=== PATIENT | male | born 1990 | race African-American/Black ===

== ENCOUNTER 2017-01-16 04:10 | Inpatient (IN) ==
[2017-01-16] MEDS ORDERED: SODIUM CHLORIDE 0.9% 2,000 ML IV STA (04:33)
[2017-01-16] MEDS ORDERED: HYDROmorphone 2 MG/1 ML VIAL IV STA ×2 (04:35→05:14)
[2017-01-16] MEDS ORDERED: ONDANSETRON 4 MG/2 ML VIAL IV STA (04:35)
[2017-01-16 05:01] LABS: Basophils % 0.3 % (0.0-0.8); Eosinophils # 0.1 10*3/uL (0.0-0.87); Eosinophils % 1.1 % (0.00-10.9); Hematocrit 25.9 VOL% (42.0-52.0); Hemoglobin 9.1 GM/DL (14.0-18.0); Immature Granulocytes % 2.4 %; Immature Granulocytes Absolute 0.25 #; Lymphocytes # 1.7 10*3/uL (1.4-4.0); Mean Corpuscular HGB Conc 35.1 GM/DL (32-36); Mean Corpuscular Hemoglobin 27 PG (27-34); Mean Corpuscular Volume 75.5 FL (87-102); Monocytes % 9.2 % (1.7-12.7); NRBC # 3.18 10*3/uL; Neutrophils # 7.5 10*3/uL (1.4-7.4); Platelet Count 55 T/CUMM (130-400); Red Blood Count 3.43 MC/CUMM (3.8-5.5); Red Cell Distribution Width 14.9 % (9.3-17.3); White Blood Count 10.5 T/CUMM (4-12)
[2017-01-16] MEDS ORDERED: PROMETHAZINE 25 MG/1 ML VIAL IM STA (05:15)
[2017-01-16] MEDS ORDERED: PROMETHAZINE 25 MG/1 ML VIAL ONE (05:18)
[2017-01-16] MEDS ORDERED: ONDANSETRON 4 MG/2 ML VIAL ONE (05:18)
[2017-01-16] MEDS ORDERED: HYDROmorphone 2 MG/1 ML VIAL ONE (05:19)
[2017-01-16 05:27] LABS: Albumin 3.9 G/DL (3.4-5.0); Bilirubin,Direct 1.9 MG/DL (0.0-0.20); Bilirubin,Total 3.4 MG/DL (0.2-1.0); Calcium 8.7 MG/DL (8.5-10.1); Osmolality,Calculated 276.8 MOS/KG (273-304); Potassium 4.5 MMOL/L (3.5-5.1); Total Protein 7.8 G/DL (6.4-8.3)
[2017-01-16 05:43] LABS: Band Neutrophils 2 % (0-10); Lymphocytes 15 % (20-55); Myelocytes 1 %; Nucleated Red Blood Cells 30 (0-5); Segmented Neutrophils 80 % (50-85); Total Cells Counted 100
[2017-01-16 05:44] LABS: Hypochromasia Slight; Ovalocytes Few; Platelet Estimate Decreased; Polychromasia 1+; Target Cells Few
--- NOTE | 2017-01-16 05:45 | Emergency Department Note ---
Lui Miles Mantricia, am scribing for, and in the presence of, Herbert Tapia MD 04:34. Regina Miles Hans, MD, personally performed the services described in this documentation, ascribed by Gina Poe in my presence, and it is both accurate and complete 544 . Arrival - Arrival Chief Complaint: Abdominal / Flank Pain Stated Complaint: ask pt ED Nursing Triage Note: c/o abd/flank pain more on right side than left. pt also reports having difficulty urinating. reports nausea/vomiting. hx of sickle cell Mode of Arrival: Ambulatory Limitations: No Limitations Source: Patient - History of Present Illness HPI Narrative: Pt is a 26 y/o black male arriving to ED with c/o right sided abdominal pain that onset yesterday. He reports that the left side is tender also, but the right side is worse. He states that he thinks he has a kidney infection. He also reports that his urine has been very dark. Pt has a PMHx of sickle cell. No other complaints were reported to ED. Onset (ago): hour(s) Consistency: constant Severity: mild Allergies/Adverse Reactions: Allergies Allergy/AdvReac Type Severity Reaction Status Date / Time No Known Allergies Allergy Unverified 01/16/17 04:12 Home Medications: Home Medications Medication Instructions Recorded Confirmed Type Hydrocodone/Acetaminophen [[place] 1 each PO Q4H PRN 01/16/17 01/16/17 History 10-325 Tablet] Naproxen [Naprosyn Tab] 500 mg PO Q12H PRN 01/16/17 01/16/17 History tiZANidine [Zanaflex] 4 - 8 mg PO TID PRN 01/16/17 01/16/17 History Review of System - Review of System Constitutional: Absent: chills, diaphoresis, fever Cardiovascular: Absent: chest pain Gastrointestinal: Present: abdominal pain, nausea, vomiting. Absent: diarrhea Musculoskeletal: Absent: arm pain, back pain, leg pain, neck pain Medical,Surgical,& Family Hx - Medical History Hematology: History of: Sickle Cell Disease - Social History Smoking Status: Current every day smoker Frequency of Alcohol Use: None Type of Drug Use: None Exam Vital Signs: Vital Signs Temperature 98.5 F 01/16/17 04:28 Pulse Rate 101 H 01/16/17 04:28 Respiratory Rate 20 01/16/17 04:28 Blood Pressure 156/108 01/16/17 04:28 O2 Sat by Pulse Oximetry 97 01/16/17 04:14 - General General appearance: alert, in no apparent distress - Head Head exam: Present: atraumatic, normocephalic, normal inspection - Eye Eye exam: Present: normal appearance, PERRL, EOMI - ENT ENT exam: Present: normal exam, normal oropharynx, mucous membranes moist, TM's normal bilaterally, normal external ear exam - Neck Neck exam: Present: normal inspection, full ROM, trachea midline. Absent: tenderness - Chest Chest inspection: Present: normal inspection, symmetric chest wall rise. Absent : tenderness - Respiratory Respiratory exam: Present: normal lung sounds bilaterally - Cardiovascular Cardiovascular exam: Present: regular rate, normal rhythm, normal heart sounds - Abdominal Exam Abdominal exam: Present: soft, tenderness (RUQ), normal bowel sounds. Absent: distention, guarding, rebound - Extremities Exam Extremities exam: Present: normal inspection, full ROM, normal capillary refill. Absent: tenderness, pedal edema - Back Exam Back exam: Present: normal inspection, full ROM. Absent: tenderness - Neurological Exam Neurological exam: Present: alert, oriented X3, CN II-XII intact, normal gait, reflexes normal - Psychiatric Psychiatric exam: Present: normal affect, normal mood - Skin Skin exam: Present: warm, dry, intact, normal color Course Course Narrative: This patient was evaluated with lab work as well as CT scan of abdomen and pelvis and chest x-ray. He was treated with IV fluids and pain medicine but was still having nausea and pain after 2mg of Dilaudid and antiemetics. His chest x-ray showed some atelectasis and bilateral infiltrates in the lower lobes and this was confirmed on CT scan of abdomen and pelvis. His bilirubin was elevated. Hemoglobin is 9.1. He has an appropriate reticulocyte count. CT scan showed no biliary ductal dilation or abnormality with the gallbladder. Lipase was normal. I discussed his sickle cell pain crisis with the hospitalist on-call and she agreed to come and see him for admission. Results - Labs CBC & BMP: 01/16/17 04:38 01/16/17 04:38 Disposition Clinical Impression: Sickle cell anemia with crisis Case discussed with: patient Disposition: Still a Patient Condition: Stable Time of Disposition: 05:44
[2017-01-16 05:50] LABS: Apearance,Urine CLEAR (Clear); Bilirubin,Urine Negative (Negative); Blood, Urine Negative (Negative); Glucose,Urine (UA) Negative (Negative); Ketones,Urine Negative (Negative); Mucus,Urine Occasional /LPF (Occasional); Nitrite,Urine Negative (Negative); Protein,Urine Negative; RBC,Urine 1 /HPF (0-4); Squamous Epithelial Cell,Urine Occasional /HPF (0-10); Urine Color Amber (Yellow); Urine Specific Gravity 1.023 (1.001-1.035); WBC,Urine 1 /HPF (0-6)
[2017-01-16] MEDS ORDERED: ZALEPLON 5 MG CAPSULE PO PRN (05:59)
[2017-01-16] MEDS ORDERED: ACETAMINOPHEN 325 MG TABLET PO PRN (05:59)
[2017-01-16] MEDS ORDERED: ONDANSETRON 4 MG/2 ML VIAL IV PRN (05:59)
[2017-01-16] MEDS ORDERED: MORPHINE 2 MG/1 ML SYRINGE IV PRN (06:10)
--- NOTE | 2017-01-16 06:25 | Hospitalist History & Physical ---
Assessment and Plan - Time spent with patient Time spent discussing smoking cessation with patient: 3 to 10 minutes (1) Sickle cell anemia with crisis Status: Acute Assessment and plan: Admit to the MedSurg unit under service of hospitalist. Given patient's labs and physical assessment at time of admit inspect the patient will require 2 midnight inpatient stay. Hydrate with normal saline at 125 mL's an hour. Pain control with morphine 4 mg IV every 4 hours. May need to be adjusted for adequate pain relief. Repeat labs in a.m. Current Visit: Yes (2) Tobacco dependence Status: Acute Assessment and plan: Smoking cessation provided. Patient offered nicotine patch which he refused. Current Visit: Yes (3) Prerenal azotemia Status: Acute Assessment and plan: Likely due to decreased fluid intake over the last few days. Rehydrate with normal saline at 125 mL's hour. Recheck labs in a.m. Current Visit: Yes History of Present Illness Chief complaint: Abdominal pain/flank pain History of present illness: Mr. Burger is a 26 year old -[place] male with past medical history of sickle cell & everyday smoker presents to the ED this morning with chief complaint of generalized abdominal pain and bilateral flank pain. He reports that he helped his sister move on Wednesday in preparation for college and his symptoms began on . He reports Wednesday he had waxing and waning of nausea and a home Wednesday he had one episode of diarrhea and vomiting. He also indicates that his urine has been very dark. He feels that since Wednesday he has not had enough fluid intake due to hurting himself with the move. Initial workup in ED included WBCs of 10.5, hemoglobin 9.1, hematocrit 25.9, MCV 75.5, platelet count 55, nucleated RBCs 30, retic count 3.3, BUN 20, total bilirubin 3.40, AST 151, ALT 74, alkaline phosphate 242, UA essentially benign. CT of the abdomen and pelvis negative for acute process. Patient was typed and screened in the ED and will be admitted to the MedSurg unit for further evaluation and treatment. Home Medications Medication Instructions Recorded Confirmed Type Hydrocodone/Acetaminophen [[place] 1 each PO Q4H PRN 01/16/17 01/16/17 History 10-325 Tablet] Naproxen [Naprosyn Tab] 500 mg PO Q12H PRN 01/16/17 01/16/17 History tiZANidine [Zanaflex] 4 - 8 mg PO TID PRN 01/16/17 01/16/17 History Allergies Allergy/AdvReac Type Severity Reaction Status Date / Time No Known Allergies Allergy Unverified 01/16/17 04:12 Medical,Surgical,& Family Hx - Medical History Hematology: History of: Sickle Cell Disease - Family History Family History: Reports;: Family Diabetes - Social History Smoking Status: Current every day smoker Have you smoked in the last 12 months: Yes Time spent discussing smoking cessation with patient: 3 to 10 minutes Frequency of Alcohol Use: None Type of Drug Use: None Marital Status: Single Functional capacity: independent ambulation - Gastrointestinal Gastrointestinal: Present: abdominal pain, cramping, diarrhea, nausea - Genitourinary Genitourinary: Present: flank pain Exam - Constitutional Vitals: Period Temp Pulse Resp BP Sys/Huff Pulse Ox Last 24 Hr 98.5 F-98.5 F 101-101 20-20 156-156/108-108 97 General appearance: over weight, other (poor hygiene ) - Head Head exam: Present: normal inspection - Eye Pupils: Present: DEACON - ENT ENT exam: Present: normal exam - Neck Neck exam: Present: normal inspection - Respiratory Respiratory exam: Present: clear to auscultation bilaterally - Cardiovascular Cardiovascular exam: Present: regular rate and rhythm - GI/Abdominal GI/Abdominal exam: Present: normal bowel sounds, tenderness (general tenderness , more intense mid epigastric to left upper quadrant). Absent: Parker's sign - Extremities Exam Extremities exam: Present: normal inspection - Back Exam Back exam: Absent: CVA tenderness (L), CVA tenderness (R) - Neurological Exam Neurological exam: Present: alert, oriented X3 - Psychiatric Psychiatric exam: Present: normal affect - Skin Skin exam: Present: normal color Results - Labs CBC & BMP: 01/16/17 04:38 01/16/17 04:38 Lab Results: I have reviewed the past 24 hour labs - Diagnostic Findings Procedure: CT Abdomen and Pelvis: report reviewed by me Quality Measures - VTE Contraindication to Pharmacological VTE Prophylaxis: Thrombocytopenia
[2017-01-16] MEDS ORDERED: NAPROXEN 500 MG TABLET PO PRN ×2 (07:07)
--- NOTE | 2017-01-16 08:33 | XRay Report ---
XR chest 1V portable Indication: Abdominal pain Comparison: None available Findings: The heart and mediastinum are normal in size and configuration. The pulmonary vascularity is normal in caliber. Small amounts of linear density are present in both lung bases. No other lung infiltrates, effusions, pneumothorax or other abnormality is demonstrated. Impression: Linear density both lung bases, could indicate atelectasis. PROCEDURE INTERPRETED AT [facility] DEPARTMENT OF RADIOLOGY Final Report Signed by: Dr. Bon Dudley
--- NOTE | 2017-01-16 08:41 | CT Report ---
CT abdomen pelvis Indication: Abdominal pain Comparison: None available Technique: Axial CT imaging of the abdomen and pelvis is performed with intravenous contrast. Contrast dose is 100 cc of Omnipaque 350. No oral contrast was used. Findings: There is a nodular density in the right lung base measures 1.6 cm in size. A additional areas of increased linear density are present in both lower lobes CT abdomen: Spleen is markedly enlarged up to 19 cm. The liver has collection and multiple calcifications present in the posterior right lobe without other abnormal density within the liver. Pancreas and adrenal glands are normal in size and enhancement. No evidence of focal lesion is demonstrated in these solid organs. Kidneys are normal in size and enhancement. No evidence of hydronephrosis or nephrolithiasis is seen. The bowel caliber is normal and no wall thickening or adjacent inflammatory change is seen. No evidence of free fluid or free air is present. Multiple central endplate depressions are present in the lower thoracic and lumbar vertebra. Bones are faintly sclerotic. Geographic changes are present in the femoral heads. CT pelvis: The pelvic bowel appears within normal limits. Bladder shows no evidence of abnormality. The pelvic organs show no evidence of abnormality Impression: Splenomegaly. Bilateral pulmonary densities could indicate infection. Sclerotic bone density with multiple central endplate depression in the lumbar spine. Geographic changes in the femoral heads suggests osteonecrosis. These collection of findings could represent myelofibrosis, anemias versus hemoglobinopathies. This CT exam was performed using one or more the following dose reduction techniques: Automated exposure control, adjustment of the MA and/or KV according to patient size, or use of iterative reconstruction technique. PROCEDURE INTERPRETED AT [facility] DEPARTMENT OF RADIOLOGY Final Report Signed by: Dr. Bon Dudley
[2017-01-16] MEDS: SODIUM CHLORIDE 0.9% 1,000 ML IV SCH ×2 (08:45→15:47)
[2017-01-16] MEDS: HYDROmorphone 2 MG/1 ML VIAL IV PRN ×4 (12:16→22:51)
[2017-01-16] MEDS: LEVOFLOXACIN 500 MG TABLET PO SCH ×2 (15:47→16:50)
[2017-01-16] MEDS: tiZANidine 4 MG TABLET PO PRN (16:50)
[2017-01-16 17:35] LABS: Barbiturates Screen,Urine Negative (Negative); Benzodiazepines Screen,Urine Negative (Negative); Cannabinoid Screen,Urine Positive (Negative); Opiate Screen,Urine Positive (Negative); Phencyclidine Screen,Urine Negative (Negative)
[2017-01-16] MEDS: ZALEPLON 5 MG CAPSULE PO PRN (22:51)
[2017-01-17] MEDS: HYDROmorphone 2 MG/1 ML VIAL IV PRN ×2 (01:30→03:47)
[2017-01-17] MEDS: SODIUM CHLORIDE 0.9% 1,000 ML IV SCH ×5 (02:52→23:16)
[2017-01-17 07:19] LABS: Basophils % 0.3 % (0.0-0.8); Eosinophils # 0.2 10*3/uL (0.0-0.87); Eosinophils % 1.1 % (0.00-10.9); Hematocrit 21.3 VOL% (42.0-52.0); Hemoglobin 7.5 GM/DL (14.0-18.0); Immature Granulocytes % 2.9 %; Immature Granulocytes Absolute 0.41 #; Lymphocytes # 1.6 10*3/uL (1.4-4.0); Lymphocytes % 11.1 % (21.2-54.2); Mean Corpuscular HGB Conc 35.2 GM/DL (32-36); Mean Corpuscular Hemoglobin 27 PG (27-34); Mean Corpuscular Volume 75.5 FL (87-102); Monocytes # 1.6 10*3/uL (0.11-0.8); Monocytes % 11.1 % (1.7-12.7); Neutrophils # 10.4 10*3/uL (1.4-7.4); Neutrophils % 73.5 % (38.7-73.9); Platelet Count 62 T/CUMM (130-400); Red Blood Count 2.82 MC/CUMM (3.8-5.5); Red Cell Distribution Width 15.2 % (9.3-17.3); White Blood Count 14.2 T/CUMM (4-12)
[2017-01-17 07:44] LABS: Albumin 3.3 G/DL (3.4-5.0); Bilirubin,Direct 2.3 MG/DL (0.0-0.20); Bilirubin,Indirect 1.4 MG/DL (0.0-1.0); Bilirubin,Total 3.7 MG/DL (0.2-1.0); Calcium 8.2 MG/DL (8.5-10.1); Magnesium 2.5 MG/DL (1.8-2.4); Osmolality,Calculated 268.1 MOS/KG (273-304); Potassium 4.4 MMOL/L (3.5-5.1); Total Protein 6.4 G/DL (6.4-8.3)
[2017-01-17] MEDS: tiZANidine 4 MG TABLET PO PRN (07:46)
[2017-01-17 09:12] LABS: Band Neutrophils 6 % (0-10); Lymphocytes 15 % (20-55); Nucleated Red Blood Cells 91 (0-5); Segmented Neutrophils 77 % (50-85); Total Cells Counted 100
[2017-01-17 09:13] LABS: Hypochromasia 2+; Microcytosis 1+; Platelet Estimate Decreased; Polychromasia 1+; Target Cells Slight
[2017-01-17] MEDS ORDERED: SODIUM CHLORIDE 0.9% 250 ML IV PRN ×2 (09:48→12:37)
--- NOTE | 2017-01-17 10:31 | CT Report ---
CT brain Indication: Headache, vertigo Comparison: None available Technique: Axial CT imaging of the brain is performed without contrast with 3 mm increments. Findings: No evidence of hemorrhage, mass mass effect midline shift or acute infarct seen. The brain parenchyma attenuation and differentiation appears within normal limits. The ventricles and cisterns are normal in caliber. No cranial or skull base abnormality is identified. Impression: No evidence of abnormality demonstrated. This CT exam was performed using one or more the following dose reduction techniques: Automated exposure control, adjustment of the MA and/or KV according to patient size, or use of iterative reconstruction technique. PROCEDURE INTERPRETED AT [facility] DEPARTMENT OF RADIOLOGY Final Report Signed by: Dr. Bon Dudley
--- NOTE | 2017-01-17 11:54 | Hospitalist Progress Note ---
Assessment and Plan (1) Sickle cell anemia with crisis Status: Acute Assessment and plan: Headache with dilaudid, will switch to morphine Add ketorolac IV fluids, supplemental oxygen Headache with dizziness, CT head without acute process Will recheck CBC, will transfuse if needed Current Visit: Yes (2) Tobacco dependence Status: Acute Current Visit: Yes Hospitalist: Subjective Interval history: No acute events overnight. Noted to have dizziness and diaphoresis following a shower. He complains of a headache. Exam - Constitutional Vitals: Period Temp Pulse Resp BP Sys/Huff Pulse Ox Last 24 Hr 97.0 F-98.4 F 95-120 18-20 115-138/58-80 93-98 General appearance: over weight - Head Head exam: Present: normocephalic, atraumatic - Eye Eye exam: Present: EOMI Pupils: Present: DEACON - ENT ENT exam: Present: normal exam - Neck Neck exam: Present: normal inspection - Respiratory Respiratory exam: Present: clear to auscultation bilaterally. Absent: rhonchi, wheezes - Cardiovascular Cardiovascular exam: Present: regular rate and rhythm - GI/Abdominal GI/Abdominal exam: Present: normal bowel sounds, soft. Absent: tenderness, rebound - Extremities Exam Extremities exam: Present: normal inspection - Back Exam Back exam: Present: normal inspection - Neurological Exam Neurological exam: Present: alert, oriented X3 - Psychiatric Psychiatric exam: Present: normal affect, normal mood - Skin Skin exam: Present: warm, intact Results - Labs CBC & BMP: 01/17/17 05:07 01/17/17 05:07 Quality Measures - VTE Contraindication to Pharmacological VTE Prophylaxis: Thrombocytopenia
[2017-01-17] MEDS: LEVOFLOXACIN 500 MG TABLET PO SCH ×2 (11:55→16:03)
[2017-01-17] MEDS: MORPHINE 2 MG/1 ML SYRINGE IV PRN ×4 (11:56→23:11)
[2017-01-17 12:25] LABS: Basophils # 0.1 10*3/uL (0.0-0.2); Basophils % 0.4 % (0.0-0.8); Eosinophils % 0.3 % (0.00-10.9); Hematocrit 22.1 VOL% (42.0-52.0); Hemoglobin 7.8 GM/DL (14.0-18.0); Immature Granulocytes % 3.4 %; Immature Granulocytes Absolute 0.54 #; Lymphocytes # 1.8 10*3/uL (1.4-4.0); Lymphocytes % 11.1 % (21.2-54.2); Mean Corpuscular HGB Conc 35.3 GM/DL (32-36); Mean Corpuscular Hemoglobin 26 PG (27-34); Mean Corpuscular Volume 74.7 FL (87-102); Monocytes # 1.3 10*3/uL (0.11-0.8); Monocytes % 8.3 % (1.7-12.7); NRBC # 16.32 10*3/uL; Neutrophils # 12.2 10*3/uL (1.4-7.4); Neutrophils % 76.5 % (38.7-73.9); Platelet Count 70 T/CUMM (130-400); Red Blood Count 2.96 MC/CUMM (3.8-5.5); Red Cell Distribution Width 15.3 % (9.3-17.3); White Blood Count 15.9 T/CUMM (4-12)
[2017-01-17 12:57] LABS: Hypochromasia Slight; Lymphocytes 7 % (20-55); Microcytosis 1+; Nucleated Red Blood Cells 258 (0-5); Platelet Estimate Decreased; Polychromasia Slight; Segmented Neutrophils 80 % (50-85); Target Cells Slight; Total Cells Counted 100
[2017-01-17] MEDS: KETOROLAC 15 MG/1 ML VIAL IV PRN ×2 (14:25→20:47)
[2017-01-17] MEDS: ZALEPLON 5 MG CAPSULE PO PRN (20:47)
[2017-01-18] MEDS: MORPHINE 2 MG/1 ML SYRINGE IV PRN ×3 (02:20→10:20)
[2017-01-18] MEDS: tiZANidine 4 MG TABLET PO PRN (03:28)
[2017-01-18] MEDS: KETOROLAC 15 MG/1 ML VIAL IV PRN ×2 (03:39→23:55)
[2017-01-18] MEDS: SODIUM CHLORIDE 0.9% 1,000 ML IV SCH ×3 (07:06→22:34)
[2017-01-18 07:18] LABS: Basophils # 0.1 10*3/uL (0.0-0.2); Basophils % 0.3 % (0.0-0.8); Eosinophils # 0.1 10*3/uL (0.0-0.87); Eosinophils % 0.6 % (0.00-10.9); Hematocrit 25.4 VOL% (42.0-52.0); Immature Granulocytes % 4.1 %; Immature Granulocytes Absolute 0.62 #; Lymphocytes # 1.7 10*3/uL (1.4-4.0); Lymphocytes % 11.1 % (21.2-54.2); Mean Corpuscular HGB Conc 35.4 GM/DL (32-36); Mean Corpuscular Hemoglobin 27 PG (27-34); Mean Platelet Volume 11.9 FL (9.6-12.0); Monocytes # 1.2 10*3/uL (0.11-0.8); Monocytes % 8.2 % (1.7-12.7); Neutrophils # 11.5 10*3/uL (1.4-7.4); Neutrophils % 75.7 % (38.7-73.9); Platelet Count 77 T/CUMM (130-400); Red Blood Count 3.34 MC/CUMM (3.8-5.5); White Blood Count 15.2 T/CUMM (4-12)
[2017-01-18 07:43] LABS: Band Neutrophils 3 % (0-10); Lymphocytes 9 % (20-55); Nucleated Red Blood Cells 259 (0-5); Segmented Neutrophils 79 % (50-85); Total Cells Counted 100
[2017-01-18 07:44] LABS: Hypochromasia 1+
[2017-01-18 07:45] LABS: Microcytosis 1+; Ovalocytes Slight; Target Cells Few
[2017-01-18 07:46] LABS: Polychromasia Slight; Tear Drop Cells Slight
[2017-01-18 07:47] LABS: Platelet Estimate Decreased
[2017-01-18 07:48] LABS: Bilirubin,Direct 2.7 MG/DL (0.0-0.20); Bilirubin,Indirect 1.5 MG/DL (0.0-1.0); Bilirubin,Total 4.2 MG/DL (0.2-1.0); Calcium 8.1 MG/DL (8.5-10.1); Magnesium 2.9 MG/DL (1.8-2.4); Potassium 5.2 MMOL/L (3.5-5.1); Total Protein 6.1 G/DL (6.4-8.3)
--- NOTE | 2017-01-18 09:27 | Physician Query Form ---
CLICK EDIT DOCUMENT TO SELECT QUERY ANSWER --> OK --> SIGN Valeria Correa RN, CCDS Certified Clinical Painting Worker W) [phone] (f) [phone] [email or web address]: Make your selection(s) from the choices in EACH section by typing an "x" and enter comments in the comment section. Please use your independent medical judgment in providing your response. This request does not imply that any particular answer is desired or expected. CLINICAL INDICATORS: (Providers should not edit this section) "His chest x-ray showed some atelectasis and bilateral infiltrates in the lower lobes and this was confirmed on CT scan of abdomen and pelvis" and the patient is on antibiotics/ WBC of 14.2 - 15.9 Based on the above, could you clarify the appropriate diagnosis, if significant , that supports the above abnormalities and additional evaluation, monitoring, and/or treatment rendered: ( ) Infiltrate is Atelectasis ( ) Infiltrate is Pneumonia ( ) Infiltrate is ( ) Other, please specify: ( x) Clinically unable to determine COMMENTS: PLEASE ALSO DOCUMENT RESPONSE IN PROGRESS NOTES AND/OR DISCHARGE SUMMARY Use of terms such as suspected, likely, or probable (associated with a specific diagnosis that is being evaluated, monitored, or treated as if it exists) are acceptable and can be restated in the discharge summary if not ruled out. MTDD
[2017-01-18] MEDS: LEVOFLOXACIN 500 MG TABLET PO SCH (10:19)
--- NOTE | 2017-01-18 11:52 | Hospitalist Progress Note ---
Assessment and Plan (1) Sickle cell anemia with crisis Status: Acute Assessment and plan: Dilaudid and ketorolac prn IV fluids, supplemental oxygen Initial cxr with possible infiltrate vs atelectasis Repeat CXR Current Visit: Yes (2) Tobacco dependence Status: Acute Current Visit: Yes Hospitalist: Subjective Interval history: No acute events overnight. This morning patient complains of back pain that he felt is related to the bed. Reports that morphine is not helping, he wants to try dilaudid again even though it caused him to have a headache yesterday. Later this morning, patient in bed, crying, stating that he is in pain and wants to go to sleep. He has been very demanding, expecting his nurse to provide for him the second that he wants something. Exam - Constitutional Vitals: Period Temp Pulse Resp BP Sys/Huff Pulse Ox Last 24 Hr 97.1 F-98.6 F 90-107 17-21 112-153/61-90 91-100 General appearance: over weight - Head Head exam: Present: normocephalic, atraumatic - Eye Eye exam: Present: EOMI Pupils: Present: DEACON - ENT ENT exam: Present: normal exam - Neck Neck exam: Present: normal inspection - Respiratory Respiratory exam: Present: clear to auscultation bilaterally. Absent: rhonchi, wheezes - Cardiovascular Cardiovascular exam: Present: regular rate and rhythm - GI/Abdominal GI/Abdominal exam: Present: normal bowel sounds, soft - Extremities Exam Extremities exam: Present: normal inspection - Back Exam Back exam: Present: normal inspection - Neurological Exam Neurological exam: Present: alert, oriented X3 - Psychiatric Psychiatric exam: Present: normal affect, normal mood - Skin Skin exam: Present: warm, intact Results - Labs CBC & BMP: 01/18/17 06:56 01/18/17 06:56 Quality Measures - VTE Contraindication to Pharmacological VTE Prophylaxis: Thrombocytopenia
[2017-01-18] MEDS: POLYETHYLENE GLYCOL POWDER 17 GM PACK PO SCH (12:35)
--- NOTE | 2017-01-18 12:56 | XRay Report ---
XR chest 1V Indication: Pulmonary infiltrates Comparison: 16 January 2017 Findings: The heart and mediastinum are normal in size and configuration. The pulmonary vascularity is normal in caliber. Left lower lung density appears slightly increased when compared to previous. Right lower lung linear density is similar to previous. No other lung infiltrates, effusions, pneumothorax or other abnormality is demonstrated. Impression: Increased left lower lung density, may indicate pneumonia. PROCEDURE INTERPRETED AT [facility] DEPARTMENT OF RADIOLOGY Final Report Signed by: Dr. Bon Dudley
[2017-01-18] MEDS: HYDROmorphone 2 MG/1 ML VIAL IV PRN (22:30)
[2017-01-19] MEDS: HYDROmorphone 2 MG/1 ML VIAL IV PRN (04:40)
[2017-01-19] MEDS: SODIUM CHLORIDE 0.9% 1,000 ML IV SCH ×3 (06:06→22:04)
[2017-01-19 06:09] LABS: Basophils # 0.1 10*3/uL (0.0-0.2); Basophils % 0.5 % (0.0-0.8); Eosinophils # 0.3 10*3/uL (0.0-0.87); Eosinophils % 1.8 % (0.00-10.9); Hematocrit 22.5 VOL% (42.0-52.0); Immature Granulocytes Absolute 1.04 #; Lymphocytes % 13.5 % (21.2-54.2); Mean Corpuscular HGB Conc 35.6 GM/DL (32-36); Mean Corpuscular Hemoglobin 27 PG (27-34); Mean Corpuscular Volume 76.5 FL (87-102); Mean Platelet Volume 11.7 FL (9.6-12.0); Monocytes # 1.2 10*3/uL (0.11-0.8); Monocytes % 8.2 % (1.7-12.7); NRBC # 27.36 10*3/uL; Neutrophils # 10.2 10*3/uL (1.4-7.4); Platelet Count 92 T/CUMM (130-400); Red Blood Count 2.94 MC/CUMM (3.8-5.5); Red Cell Distribution Width 17.7 % (9.3-17.3); White Blood Count 14.8 T/CUMM (4-12)
[2017-01-19 06:36] LABS: Band Neutrophils 1 % (0-10); Eosinophils 3 % (0-10); Hypochromasia 1+; Lymphocytes 14 % (20-55); Macrocytosis 2+; Myelocytes 1 %; Nucleated Red Blood Cells 250 (0-5); Polychromasia 1+; Segmented Neutrophils 74 % (50-85); Target Cells 1+; Total Cells Counted 100
[2017-01-19 06:37] LABS: Platelet Estimate Decreased
[2017-01-19 06:47] LABS: Calcium 8.3 MG/DL (8.5-10.1); Magnesium 2.9 MG/DL (1.8-2.4); Osmolality,Calculated 273.8 MOS/KG (273-304); Potassium 4.4 MMOL/L (3.5-5.1)
[2017-01-19] MEDS: LEVOFLOXACIN 500 MG TABLET PO SCH (10:03)
[2017-01-19] MEDS: POLYETHYLENE GLYCOL POWDER 17 GM PACK PO SCH (10:04)
[2017-01-19] MEDS ORDERED: ALBUTEROL/IPRATROPIUM 3 ML NEB RESP TX PRN (13:27)
[2017-01-19] MEDS ORDERED: LACTULOSE 20 GM/30 ML UDCUP PO PRN (14:25)
--- NOTE | 2017-01-19 15:03 | Hospitalist Progress Note ---
Assessment and Plan (1) Sickle cell anemia with crisis Status: Acute Assessment and plan: Dilaudid and ketorolac prn IV fluids, supplemental oxygen Initial cxr with possible infiltrate vs atelectasis Repeat CXR more consistent with pneumonia Current Visit: Yes (2) Tobacco dependence Status: Acute Current Visit: Yes (3) Pneumonia Status: Acute Assessment and plan: Levaquin Current Visit: Yes Hospitalist: Subjective Interval history: No acute events overnight. Complaining of right flank pain, tender to palpation. He says that all of his other pain is better. Exam - Constitutional Vitals: Period Temp Pulse Resp BP Sys/Huff Pulse Ox Last 24 Hr 97.9 F-99.9 F 90-101 18-20 115-142/48-88 91-99 General appearance: over weight - Head Head exam: Present: normocephalic, atraumatic - Eye Eye exam: Present: EOMI Pupils: Present: DEACON - ENT ENT exam: Present: normal exam - Neck Neck exam: Present: normal inspection - Respiratory Respiratory exam: Present: clear to auscultation bilaterally. Absent: rhonchi, wheezes - Cardiovascular Cardiovascular exam: Present: regular rate and rhythm - GI/Abdominal GI/Abdominal exam: Present: normal bowel sounds, soft. Absent: tenderness, rebound - Extremities Exam Extremities exam: Present: normal inspection - Back Exam Back exam: Present: normal inspection - Neurological Exam Neurological exam: Present: alert, oriented X3 - Psychiatric Psychiatric exam: Present: normal affect, normal mood - Skin Skin exam: Present: warm, intact Results - Labs CBC & BMP: 01/19/17 05:09 01/19/17 05:09 Quality Measures - VTE Contraindication to Pharmacological VTE Prophylaxis: Thrombocytopenia
[2017-01-19] MEDS: KETOROLAC 15 MG/1 ML VIAL IV PRN (15:18)
[2017-01-19] MEDS: DICLOFENAC 1% GEL 100 GM TUBE TOP SCH ×2 (16:22→21:31)
[2017-01-20] MEDS: HYDROmorphone 2 MG/1 ML VIAL IV PRN (01:39)
[2017-01-20] MEDS: SODIUM CHLORIDE 0.9% 1,000 ML IV SCH ×2 (06:06→16:38)
[2017-01-20 07:33] LABS: Basophils # 0.1 10*3/uL (0.0-0.2); Basophils % 0.6 % (0.0-0.8); Eosinophils # 0.3 10*3/uL (0.0-0.87); Eosinophils % 1.6 % (0.00-10.9); Hematocrit 21.6 VOL% (42.0-52.0); Hemoglobin 7.8 GM/DL (14.0-18.0); Immature Granulocytes % 8.6 %; Immature Granulocytes Absolute 1.36 #; Lymphocytes # 2.3 10*3/uL (1.4-4.0); Lymphocytes % 14.5 % (21.2-54.2); Mean Corpuscular HGB Conc 36.1 GM/DL (32-36); Mean Corpuscular Hemoglobin 28 PG (27-34); Mean Corpuscular Volume 77.4 FL (87-102); Mean Platelet Volume 12.1 FL (9.6-12.0); Monocytes # 1.4 10*3/uL (0.11-0.8); NRBC # 34.26 10*3/uL; Neutrophils # 10.4 10*3/uL (1.4-7.4); Neutrophils % 65.7 % (38.7-73.9); Red Blood Count 2.79 MC/CUMM (3.8-5.5); Red Cell Distribution Width 18.9 % (9.3-17.3); White Blood Count 15.8 T/CUMM (4-12)
[2017-01-20 07:53] LABS: Platelet Count 136 T/CUMM (130-400)
[2017-01-20 08:20] LABS: Band Neutrophils 4 % (0-10); Eosinophils 1 % (0-10); Giant Platelets Few; Hypochromasia 1+; Lymphocytes 12 % (20-55); Nucleated Red Blood Cells 223 (0-5); Ovalocytes Slight; Platelet Estimate Normal; Segmented Neutrophils 75 % (50-85); Target Cells Few; Total Cells Counted 100
[2017-01-20 08:21] LABS: Macrocytosis Slight; Polychromasia Slight
[2017-01-20] MEDS: DICLOFENAC 1% GEL 100 GM TUBE TOP SCH ×3 (08:50→20:06)
[2017-01-20] MEDS: POLYETHYLENE GLYCOL POWDER 17 GM PACK PO SCH (08:50)
[2017-01-20] MEDS: LEVOFLOXACIN 500 MG TABLET PO SCH (08:50)
[2017-01-20] MEDS: KETOROLAC 15 MG/1 ML VIAL IV PRN ×2 (10:02→21:13)
[2017-01-20] MEDS ORDERED: HYDROmorphone 2 MG/1 ML VIAL IV PRN (15:43)
[2017-01-20] MEDS ORDERED: SODIUM CHLORIDE 0.9% 250 ML IV PRN (15:44)
--- NOTE | 2017-01-20 15:48 | Hospitalist Progress Note ---
Assessment and Plan (1) Sickle cell anemia with crisis Status: Acute Assessment and plan: Dilaudid and ketorolac prn IV fluids, supplemental oxygen Initial cxr with possible infiltrate vs atelectasis Repeat CXR more consistent with pneumonia Levaquin Drop in H/H today, will transfuse Current Visit: Yes (2) Tobacco dependence Status: Acute Current Visit: Yes (3) Pneumonia Status: Acute Assessment and plan: Levaquin Current Visit: Yes Hospitalist: Subjective Interval history: No acute events overnight. Patient reports that he feels better, pain is better controlled. Exam - Constitutional Vitals: Period Temp Pulse Resp BP Sys/Huff Pulse Ox Last 24 Hr 97.4 F-100.3 F 60-110 17-20 109-152/46-83 90-99 General appearance: over weight - Head Head exam: Present: normocephalic, atraumatic - Eye Eye exam: Present: EOMI Pupils: Present: DEACON - ENT ENT exam: Present: normal exam - Neck Neck exam: Present: normal inspection - Respiratory Respiratory exam: Present: clear to auscultation bilaterally. Absent: wheezes - Cardiovascular Cardiovascular exam: Present: regular rate and rhythm - GI/Abdominal GI/Abdominal exam: Present: normal bowel sounds, soft. Absent: tenderness, rebound - Extremities Exam Extremities exam: Present: normal inspection - Back Exam Back exam: Present: normal inspection - Neurological Exam Neurological exam: Present: alert, oriented X3 - Psychiatric Psychiatric exam: Present: normal affect, normal mood - Skin Skin exam: Present: warm, intact Results - Labs CBC & BMP: 01/20/17 05:30 01/19/17 05:09 Quality Measures - VTE Contraindication to Pharmacological VTE Prophylaxis: Thrombocytopenia
[2017-01-20 20:04] LABS: Apearance,Urine CLEAR (Clear); Bilirubin,Urine Negative (Negative); Blood, Urine Moderate mg/dL (Negative); Glucose,Urine (UA) Negative (Negative); Ketones,Urine Negative (Negative); Nitrite,Urine Negative (Negative); Protein,Urine Negative; RBC,Urine <1 /HPF (0-4); Squamous Epithelial Cell,Urine Occasional /HPF (0-10); Urine Color Amber (Yellow); Urine Specific Gravity 1.009 (1.001-1.035); WBC,Urine 2 /HPF (0-6)
[2017-01-20] MEDS: ZALEPLON 5 MG CAPSULE PO PRN (21:13)
[2017-01-20] MEDS: tiZANidine 4 MG TABLET PO PRN (21:14)
[2017-01-21 03:08] LABS: Basophils # 0.1 10*3/uL (0.0-0.2); Basophils % 0.5 % (0.0-0.8); Eosinophils # 0.2 10*3/uL (0.0-0.87); Eosinophils % 1.6 % (0.00-10.9); Hemoglobin 9.3 GM/DL (14.0-18.0); Immature Granulocytes % 8.7 %; Immature Granulocytes Absolute 1.28 #; Lymphocytes # 2.8 10*3/uL (1.4-4.0); Lymphocytes % 18.8 % (21.2-54.2); Mean Corpuscular HGB Conc 35.8 GM/DL (32-36); Mean Corpuscular Hemoglobin 28 PG (27-34); Mean Corpuscular Volume 78.3 FL (87-102); Mean Platelet Volume 11.7 FL (9.6-12.0); Monocytes # 1.1 10*3/uL (0.11-0.8); Monocytes % 7.4 % (1.7-12.7); NRBC # 33.88 10*3/uL; Neutrophils # 9.3 10*3/uL (1.4-7.4); Platelet Count 190 T/CUMM (130-400); Red Blood Count 3.32 MC/CUMM (3.8-5.5); Red Cell Distribution Width 19.8 % (9.3-17.3); White Blood Count 14.7 T/CUMM (4-12)
[2017-01-21 03:13] LABS: Calcium 8.5 MG/DL (8.5-10.1); Magnesium 2.7 MG/DL (1.8-2.4); Osmolality,Calculated 278.5 MOS/KG (273-304); Potassium 4.5 MMOL/L (3.5-5.1)
[2017-01-21 04:59] LABS: Band Neutrophils 3 % (0-10); Eosinophils 1 % (0-10); Lymphocytes 18 % (20-55); Metamyelocytes 1 %; Myelocytes 5 %; Nucleated Red Blood Cells 290 (0-5); Segmented Neutrophils 70 % (50-85); Total Cells Counted 100
[2017-01-21 05:00] LABS: Anisocytosis 1+; Hypochromasia 1+
[2017-01-21 05:01] LABS: Ovalocytes 1+; Platelet Estimate Normal; Target Cells 1+; Tear Drop Cells Few
[2017-01-21 08:53] LABS: Albumin 2.8 G/DL (3.4-5.0); Bilirubin,Direct 2.5 MG/DL (0.0-0.20); Bilirubin,Indirect 1.5 MG/DL (0.0-1.0); Total Protein 6.1 G/DL (6.4-8.3)
[2017-01-21] MEDS: LEVOFLOXACIN 500 MG TABLET PO SCH (08:56)
[2017-01-21] MEDS: DICLOFENAC 1% GEL 100 GM TUBE TOP SCH (08:56)
[2017-01-21] MEDS: SODIUM CHLORIDE 0.9% 1,000 ML IV SCH (09:00)
[2017-01-21] MEDS: POLYETHYLENE GLYCOL POWDER 17 GM PACK PO SCH (09:01)
--- NOTE | 2017-01-21 10:30 | Discharge Summary ---
<Penny Barfieldda - Last Filed: 01/21/17 10:19> Hospital Course - Hospital Course Hospital Course: This is a 26-year-old male that presented to the ED at [facility] on the morning of January 16, 2017 for evaluation of generalized abdominal pain and bilateral flank pain. The patient has a medical history significant for sickle cell anemia and nicotine abuse. The patient reported the onset of symptoms 4 days prior to presentation. He reported that he states that his sister to move in preparation for college and that he is symptoms appeared on the next day. One day prior to presentation, the patient reported that he had multiple episodes of nausea and one episode of diarrhea and vomiting. In addition, the patient reported a decrease in p.o. intake and dark discoloration of his urine. His symptoms became severe prompting him to present to the ED for further evaluation.The patient was assessed at the time of ED presentation. Labs were obtained which were significant for white blood cell count 18.5, hemoglobin 9.1, hematocrit 25.9, MCV 75.5, platelet count 55, nucleated red blood cells at 30, reticulocyte count at 3.3, BUN 20, total bilirubin 3.40, AST 151, ALT 74, alkaline phosphatase 242. Urinalysis was essentially unremarkable. CT abdomen and pelvis was essentially negative for any acute intra-abdominal processes. Chest x-ray significant for linear density in both lung bases possibly indicating atelectasis. The patient was subsequently admitted to the hospitalist service for continuation of care. The patient was typed and screened prior to transfer to the medical surgical unit. Aggressive fluid rehydration,oxygen supplementation and pain management was initiated. On January 18, 2017, repeat chest x-ray was significant for increased left lower lobe density indicating possible pneumonia. At that time, empiric antibiotic coverage was initiated. The patient was noted to have gradual decline in his hemoglobin and hematocrit. On January 20, 2017; the patient 's hemoglobin and hematocrit was noted at 7.8/21.6. The patient was transfused 2 units of packed red blood cells; the patient's hemoglobin and hematocrit responded appropriately and are noted at 9.3/26.0. The patient's condition is stable. The patient has not experienced any significant overnight events. Today, we feel that he is indeed appropriate for discharge to follow-up with his primary care physician as directed. Discharge Plan - Discharge Data Disposition: Disch To Home/Self Care - Discharge Medications New Levofloxacin Tab [Levaquin Tab] 500 mg PO DAILY #3 tablet Ondansetron Inj [Zofran Inj] 4 mg IV Q4H PRN vial PRN Reason: Nausea Polyethylene Glycol Powder [Miralax] 17 gm PO DAILY Continue Naproxen [Naprosyn Tab] 500 mg PO Q12H PRN PRN Reason: Pain Folic Acid Tab 1 mg PO BID Ergocalciferol (Vitamin D2) [Vitamin D2] 1 tablet PO DAILY Hydrocodone/Acetaminophen [Clarion 10-325 Tablet] 1 each PO Q4H PRN #20 tablet PRN Reason: Pain tiZANidine [Zanaflex] 4 - 8 mg PO TID PRN PRN Reason: Muscle Spasm - Follow Up or Referral - Forms/Instructions Exam - Constitutional Vitals: Period Temp Pulse Resp BP Sys/Huff Pulse Ox Last 24 Hr 97.5 F-99.1 F 88-106 16-22 116-144/63-84 91-99 Discharge Results Procedures and tests throughout hospitalization: Pending Orders 01/17/17 Red Blood Cells Leuko Red Routine Labs on day of discharge: Labs from last 24 hours 01/21/17 01/21/17 01/21/17 02:24 02:24 02:23 WBC 14.7 H RBC 3.32 L Hgb 9.3 L Hct 26.0 L MCV 78.3 L MCH 28 MCHC 35.8 RDW 19.8 H Plt Count 190 D MPV 11.7 Neut % (Auto) 63.0 Lymph % (Auto) 18.8 L [place] % (Auto) 7.4 Eos % (Auto) 1.6 Baso % (Auto) 0.5 Neut # (Auto) 9.3 H Lymph # (Auto) 2.8 [place] # (Auto) 1.1 H Eos # (Auto) 0.2 Baso # (Auto) 0.1 Total Counted 100 Immature Gran % 8.7 Nucleated RBC % 230.2 Immature Gran # 1.28 Segmented Neutrophils 70 Band Neutrophils 3 Lymphocytes 18 L Monocytes 2 Eosinophils 1 Metamyelocytes 1 Myelocytes 5 Nucleated RBCs 290 H Nucleated RBCs # 33.88 Platelet Estimate Normal Hypochromasia 1+ Anisocytosis 1+ Target Cells 1+ Tear Drop Cells Few Ovalocytes 1+ Sodium 139 Potassium 4.5 Chloride 105 Carbon Dioxide 28 Anion Gap 10.5 BUN 15 Creatinine 0.70 GFR Calculation 207 BUN/Creatinine Ratio 21.00 H Glucose 116 H Calculated Osmolality 278.5 Calcium 8.5 Magnesium 2.7 H Total Bilirubin 4.00 H Direct Bilirubin 2.50 H Indirect Bilirubin 1.5 H AST 129 H ALT 84 H Alkaline Phosphatase 262 H Total Protein 6.1 L Albumin 2.8 L Urine Color Urine Appearance Urine pH Ur Specific [place] Urine Protein Urine Glucose (UA) Urine Ketones Urine Blood Urine Nitrate Urine Bilirubin Urine Urobilinogen Urine Leukocytes Urine RBC Urine WBC Ur Squamous Epith Cells Ur Culture Indicated? Blood Type Antibody Screen Crossmatch 01/20/17 01/20/17 18:30 16:34 WBC RBC Hgb Hct MCV MCH MCHC RDW Plt Count MPV Neut % (Auto) Lymph % (Auto) [place] % (Auto) Eos % (Auto) Baso % (Auto) Neut # (Auto) Lymph # (Auto) [place] # (Auto) Eos # (Auto) Baso # (Auto) Total Counted Immature Gran % Nucleated RBC % Immature Gran # Segmented Neutrophils Band Neutrophils Lymphocytes Monocytes Eosinophils Metamyelocytes Myelocytes Nucleated RBCs Nucleated RBCs # Platelet Estimate Hypochromasia Anisocytosis Target Cells Tear Drop Cells Ovalocytes Sodium Potassium Chloride Carbon Dioxide Anion Gap BUN Creatinine GFR Calculation BUN/Creatinine Ratio Glucose Calculated Osmolality Calcium Magnesium Total Bilirubin Direct Bilirubin Indirect Bilirubin AST ALT Alkaline Phosphatase Total Protein Albumin Urine Color [place] Urine Appearance Clear Urine pH 8.0 Ur Specific [place] 1.009 Urine Protein Negative Urine Glucose (UA) Negative Urine Ketones Negative Urine Blood Moderate Urine Nitrate Negative Urine Bilirubin Negative Urine Urobilinogen 4.0 H Urine Leukocytes Negative Urine RBC <1 Urine WBC 2 Ur Squamous Epith Cells Occasional Ur Culture Indicated? Not indicated Blood Type A NEGATIVE Antibody Screen Negative Crossmatch See Detail DS: Provider Date of admission: 01/16/17 06:00 Primary care physician: Nathaniel Tejeda Attending physician on admission: Herman Aguilar MD Discharging clinician: Paco Barfield CNP <Katrin Babin - Last Filed: 01/21/17 10:41> Hospital Course - Time spent with patient Time with patient DS: Greater than 30 minutes (35) Diagnosis - Discharge Diagnosis (1) Sickle cell anemia with crisis Status: Resolved (2) Tobacco dependence Status: Chronic (3) Pneumonia Status: Resolved Discharge Plan - Discharge Data Condition at Discharge: Stable Discharge Diet: advance to your usual diet Activity: increase activity as tolerated Hygiene: no restrictions Weight Bearing at Discharge: weight bear as tolerated Contact your physician if you experience:: Shortness of breath, pain uncontrolled by pain medications Exam - Constitutional General appearance: over weight - Head Head exam: Present: normocephalic, atraumatic - Eye Eye exam: Present: EOMI Pupils: Present: DEACON - ENT ENT exam: Present: normal exam - Neck Neck exam: Present: normal inspection - Respiratory Respiratory exam: Present: clear to auscultation bilaterally. Absent: rhonchi, wheezes - Cardiovascular Cardiovascular exam: Present: regular rate and rhythm - GI/Abdominal GI/Abdominal exam: Present: normal bowel sounds, soft. Absent: tenderness, rebound - Extremities Exam Extremities exam: Present: normal inspection - Back Exam Back exam: Present: normal inspection - Neurological Exam Neurological exam: Present: alert, oriented X3 - Psychiatric Psychiatric exam: Present: normal affect, normal mood - Skin Skin exam: Present: warm, intact
[2017-01-21 12:30] VITALS: BP 139/75
== END 2017-01-21 13:10 | disposition home or self-care (01) | DRG 811 ==
LOC: N.ED 04:10 → N.EDINP 06:00 → SUATTDRO 06:00 → N.5E 06:30
PROVIDERS: ADMIT Family Medicine; ATTEND Internal Medicine